=== PATIENT | male | born 1955 | race Caucasian/White ===

== ENCOUNTER 2019-03-10 01:27 | Outpatient (CLI) | payer OTHER, SELFPAY ==
[2019-03-10 12:21] LABS: BUN 18 mg/dL (7-18); C-Reactive Protein 0.95 mg/dL (0.0-0.3); CREATININE 0.77 mg/dL (0.70-1.30); Calcium 8.8 mg/dL (8.5-10.1); Chloride 103 mmol/L (98-107); Glucose 148 mg/dL (70-100); Potassium 3.2 mmol/L (3.5-5.1); Sodium 140 mmol/L (136-145); Uric Acid 7.3 mg/dL (3.5-7.2)
== END 2019-03-10 01:47 ==
PROVIDERS: PCP Emergency Medicine; Visit Provider Emergency Medicine
DX: I10 Essential (primary) hypertension (principal); M10.9 Gout, unspecified
CPT/HCPCS: 36415; 80048; 84550; 86140

== ENCOUNTER 2019-03-30 08:33 | Outpatient (CLI) | payer OTHER, SELFPAY ==
--- NOTE | 2019-03-30 09:05 | DI.RAD_ITS ---
SYMPTOMS/DIAGNOSIS: PAIN, SWELLING, GOUT, M10.9 LEFT LITTLE FINGER: Three views. At the distal interphalangeal joint of the left little finger, there are prominence osteophytes present, particularly posteriorly. There is joint space narrowing. No erosive changes are seen. No periarticular calcifications are present. There is swelling of the left little finger. No acute fracture or dislocation is seen. IMPRESSION: Soft tissue swelling and hypertrophic changes seen involving the left little finger. The findings are suggestive of arthritis. Inflammatory arthritis versus osteoarthritis should be considered.
[2019-03-30 09:16] LABS: Hemoglobin A1C 5.3 % (4.5-6.2)
[2019-03-30 09:33] LABS: BUN 18 mg/dL (7-18); CREATININE 0.85 mg/dL (0.70-1.30); Calcium 9.4 mg/dL (8.5-10.1); Chloride 101 mmol/L (98-107); Glucose 140 mg/dL (70-100); Potassium 3.4 mmol/L (3.5-5.1); Sodium 140 mmol/L (136-145)
== END 2019-03-30 08:53 ==
PROVIDERS: PCP Emergency Medicine; Visit Provider Emergency Medicine
DX: M10.9 Gout, unspecified (principal); R73.09 Other abnormal glucose; M79.645 Pain in left finger(s); M79.89 Other specified soft tissue disorders; M19.042 Primary osteoarthritis, left hand
CPT/HCPCS: 36415; 80048; 73140; 83036; 84550

== ENCOUNTER 2022-06-07 01:22 | Outpatient (CLI) | payer MEDICARE, SELFPAY ==
[2022-06-07 13:46] LABS: CREATININE 0.8 mg/dL (0.70-1.30); Calculated LDL 109 mg/dL (<100); Cholesterol 171 mg/dL (<200); HDL Cholesterol 45 mg/dL (40-60); Potassium 3.5 mmol/L (3.5-5.1); Triglyceride 86 mg/dL (<150)
[2022-06-07 13:56] LABS: Uric Acid 5.3 mg/dL (3.5-7.2)
== END 2022-06-07 01:23 | disposition home or self-care (01) ==
LOC: LOS 01:22
PROVIDERS: PCP Family Medicine; Visit Provider Family Medicine
DX: M10.9 Gout, unspecified (principal); I10 Essential (primary) hypertension; E78.5 Hyperlipidemia, unspecified
CPT/HCPCS: 36415; 80061; 82565; 84132; 84550

== ENCOUNTER 2023-09-23 04:43 | Outpatient (CLI) | payer MEDICARE, SELFPAY ==
[2023-09-23 10:39] LABS: CREATININE 0.9 mg/dL (0.70-1.30); Calculated LDL 130 mg/dL (<100); Cholesterol 186 mg/dL (<200); Estimated GFR 92.45 (mL/min/1.73m2); HDL Cholesterol 42 mg/dL (40-60); Potassium 3.5 mmol/L (3.5-5.1); Triglyceride 74 mg/dL (<150)
== END 2023-09-23 04:44 | disposition home or self-care (01) ==
LOC: LBO 04:43
PROVIDERS: PCP Family Medicine; Visit Provider Family Medicine
DX: I10 Essential (primary) hypertension (principal); E78.5 Hyperlipidemia, unspecified
CPT/HCPCS: 36415; 80061; 82565; 84132

== ENCOUNTER 2025-05-10 10:03 | Outpatient (CLI) | payer MEDICARE, SELFPAY ==
[2025-05-10 16:22] LABS: Anion Gap 10.0 mmol/L (3-11); BUN 22 mg/dL (7-18); CO2 29.0 mmol/L (21.0-32.0); Calcium 9.7 mg/dL (8.5-10.1); Chloride 101 mmol/L (98-107); Estimated GFR 49.47 (mL/min/1.73m2); Glucose 103 mg/dL (74-106); Potassium 3.2 mmol/L (3.5-5.1); Sodium 140 mmol/L (136-145); Triglyceride 190 mg/dL (<150); Uric Acid 5.0 mg/dL (3.5-7.2)
[2025-05-10 16:36] LABS: Calculated LDL 125 mg/dL (<100); Cholesterol 206 mg/dL (<200); HDL Cholesterol 43 mg/dL (>or=40)
[2025-05-11 09:51] LABS: Hepatitis C Ab w Rflx HCV PCR Negative (Negative)
[2025-05-11 10:19] LABS: HBs Antibody, Quant <3.1 mIU/mL (See Note); Hepatitis B Surface Antigen Negative (Negative)
== END 2025-05-10 10:04 | disposition home or self-care (01) ==
PROVIDERS: PCP Family Medicine; Visit Provider Family Medicine
DX: Z11.59 Encounter for screening for other viral diseases (principal); E11.69 Type 2 diabetes mellitus with other specified complication; E78.5 Hyperlipidemia, unspecified; Z13.220 Encounter for screening for lipoid disorders; E87.1 Hypo-osmolality and hyponatremia; M10.9 Gout, unspecified
CPT/HCPCS: 36415; 80048; 80061; 86704; 86706; 86803; 87340; 84550

== ENCOUNTER 2025-06-02 04:20 | Outpatient (CLI) | payer MEDICARE, SELFPAY ==
[2025-06-02 13:19] LABS: Estimated GFR 80.47 (mL/min/1.73m2)
== END 2025-06-02 04:21 | disposition home or self-care (01) ==
LOC: LBO 04:20
PROVIDERS: PCP Family Medicine; Visit Provider Family Medicine
DX: I10 Essential (primary) hypertension (principal)
CPT/HCPCS: 36415; 82565

== ENCOUNTER 2025-07-26 03:27 | Outpatient (CLI) | payer MEDICARE, SELFPAY ==
[2025-07-31 12:13] LABS: Renin Activity, Plasma <0.6 ng/mL/h
== END 2025-07-26 03:28 | disposition home or self-care (01) ==
LOC: LBO 03:27
PROVIDERS: PCP Family Medicine; Visit Provider Family Medicine
DX: I10 Essential (primary) hypertension (principal)
CPT/HCPCS: 36415; 82088; 84244